=== PATIENT | male | born 1960 | race Two or more races ===

== ENCOUNTER 2022-09-30 09:13 | Emergency (ER) | payer MEDICAID ==
[~2022-09-30] VITALS: Ht 172.7 cm; Wt 74.8 kg
[2022-09-30 10:10] LABS: Hematocrit 32.7 % (41.0-53.0); Hemoglobin 10.9 g/dL (13.5-17.5); Mean Corpuscular Hemoglobin 26.7 pg (28.0-32.0); Mean Corpuscular Hgb Conc. 33.3 g/dL (32.0-36.0); Mean Corpuscular Volume 80.3 fL (80.0-100.0); Red Blood Cells 4.08 10^6/uL (4.5-5.90); Red Cell Distribution Width 14.2 % (11.8-14.3); White Blood Cell 3.7 10^3/uL (4.4-10.8)
[2022-09-30 10:19] LABS: Basophils % (manual) 0 (0.0-2.0); Blast Cells 0; Metamyelocytes % 0; Myelocytes % 0; Promyelocytes % 0; Reactive Lymphocytes 0
[2022-09-30 10:35] LABS: Calcium 8.5 mg/dL (8.5-10.1); Potassium 4.6 mmol/L (3.5-5.1)
[2022-09-30 10:38] LABS: BUN/Creatinine Ratio 17.1 (10.0-20.0); Bilirubin, Total 0.3 mg/dL (0.2-1.0); Total Protein 7.6 g/dL (6.4-8.2)
[2022-09-30 11:57] LABS: Band Neutrophils % (manual) 6; Eosinophils % (manual) 3 (0-7); Lymphocytes % (manual) 20 (10.0-50.0); Monocytes % (manual) 8 (0-12)
[2022-09-30 12:02] VITALS: BP 136/78
[2022-09-30] MEDS ORDERED: KETO2CRE4 TOP (12:10)
[2022-09-30] MEDS ORDERED: CEPH500C PO (12:10)
== END 2022-09-30 12:28 | disposition home or self-care (01) ==
LOC: ER 09:13
DX: B35.6 Tinea cruris (principal); L08.9 Local infection of the skin and subcutaneous tissue, unspecified; Z88.6 Allergy status to analgesic agent
CPT/HCPCS: 36415; 76870; 80053; 85007; 85027

== ENCOUNTER 2022-11-19 09:32 | Emergency (ER) | payer MEDICAID ==
[~2022-11-19] VITALS: Ht 172.7 cm; Wt 74.5 kg
[~2022-11-19 09:32] MED LIST: CEPH500C PO; KETO2CRE4 TOP
[2022-11-19 10:08] LABS: Basophils # (auto) 0 10 ^3/uL (0-0.2); Basophils % (auto) 0.6 % (0.0-2.0); Eosinophils # (auto) 0.1 10 ^3/uL (0-0.8); Eosinophils % (auto) 1.4 % (0.0-7.0); Hematocrit 38.5 % (41.0-53.0); Lymphocytes # (auto) 1.8 10 ^3/uL (0.4-5.4); Lymphocytes % (auto) 31.1 % (10.0-50.0); Mean Corpuscular Hemoglobin 28.1 pg (28.0-32.0); Mean Corpuscular Hgb Conc. 33.7 g/dL (32.0-36.0); Mean Corpuscular Volume 83.4 fL (80.0-100.0); Monocytes # (auto) 0.4 10 ^3/uL (0-1.3); Monocytes % (auto) 7.4 % (0.0-12.0); Neutrophils # (auto) 3.5 10 ^3/uL (1.6-8.6); Neutrophils % (auto) 59.5 % (37.0-80.0); Nucleated Red Blood Cells % 0.1 %; Red Blood Cells 4.62 10^6/uL (4.5-5.90); Red Cell Distribution Width 18.3 % (11.8-14.3)
[2022-11-19 10:17] LABS: Partial Thromboplastin Time 25.7 SEC (24.5-34.5)
[2022-11-19 10:20] LABS: Urine Bacteria NONE SEEN /hpf (None Seen); Urine Blood Negative /uL (Negative); Urine Hyaline Cast FEW /lpf (0 - 2); Urine Mucus FEW (None Seen); Urine Specific Gravity 1.016 (1.001-1.035); Urine WBC <1 /hpf (0 - 3)
[2022-11-19 10:21] LABS: Albumin 4.1 g/dL (3.4-5.0); Calcium 9.1 mg/dL (8.5-10.1); Magnesium 2.9 mg/dL (1.6-2.6); Potassium 4.4 mmol/L (3.5-5.1)
[2022-11-19 10:24] LABS: Bilirubin, Total 0.9 mg/dL (0.2-1.0); Total Protein 7.8 g/dL (6.4-8.2)
[2022-11-19 14:33] VITALS: BP 119/66; PULSE 74; RESP 16; TEMP 98.1; O2SAT 99
== END 2022-11-19 14:39 | disposition home or self-care (01) ==
LOC: ER 09:32
DX: H53.8 Other visual disturbances (principal); Z90.49 Acquired absence of other specified parts of digestive tract; Z90.89 Acquired absence of other organs; Z87.891 Personal history of nicotine dependence
CPT/HCPCS: 36415; 70450; 80053; 81001; 82140; 83735; 85025; 85610; 85730; 93005